=== PATIENT | male | born 1970 | race Caucasian/White ===

== ENCOUNTER 2020-05-04 18:10 | Emergency (ER) | payer BC, SELFPAY ==
--- NOTE | ~2020-05-04 | CT_ITS ---
EXAMINATION: CT abdomen pelvis w con INDICATION: Right flank pain and hematuria TECHNIQUE: Computed tomographic images of the abdomen and pelvis were obtained after the administrati on of 100 cc of Omnipaque 350 intravenous contrast. The dose-length product (DLP) was 1156.79 mGy-cm. Automated exposure control and iterative reconstruction technique were employed. COMPARISON: 09/08/2016 FINDINGS: Minimal dependent atelectasis is present in the lung bases. The heart size is normal. The l iver, spleen, pancreas, gallbladder, and adrenal glands are normal. There is a 5 mm stone of the righ t distal ureter which causes mild right hydroureteronephrosis. There is decreased perfusion of the ri ght kidney compared to the left. There is a 2 cm cyst of the right mid kidney. A 3 mm stone is prese nt in the lower pole of the left kidney. No pathologically enlarged abdominal or pelvic lymph nodes a re identified. There is no free intraperitoneal gas or evidence of bowel obstruction. The appendix is normal. There is mild lumbar spondylosis. There is mild rectal wall thickening. IMPRESSION: 1. 5 mm stone of the right distal ureter causing mild right hydroureteronephrosis. 2. Mild rectal wall thickening which could be due to incomplete distention however recommend correlat ion with colonoscopy history. Reviewed, dictated and finalized at location A. IMPRESSION: 1. 5 mm stone of the right distal ureter causing mild right hydroureteronephros is. 2. Mild rectal wall thickening which could be due to incomplete distention smith azra recommend correlation with colonoscopy history.
--- NOTE | ~2020-05-04 | XR_ITS ---
EXAMINATION: XR abdomen/kub 1V INDICATION: Right ureteral stone TECHNIQUE: Supine views of the abdomen were obtained on 2 radiographs. COMPARISON: CT from today FINDINGS: There is a 5 mm stone in the right distal ureter. There is moderate right hydroureteronephr osis and persistent right nephrogram. The bowel gas pattern is normal. Contrast from earlier CT also partially opacifies the left collecting system and bladder which appear normal. IMPRESSION: 1. 5 mm stone in the right distal ureter with moderate right hydroureteronephrosis and persistent rig ht nephrogram. Reviewed, dictated and finalized at location A. IMPRESSION: 1. 5 mm stone in the right distal ureter with moderate right hydroureteronephro sis and persistent right nephrogram.
[2020-05-04 18:16] VITALS: BP 144/88; PULSE 80; RESP 19; TEMP 37.1; O2SAT 98
[2020-05-04 18:33] LABS: Basophils Absolute Auto 0.1 K/mm3 (0.0-0.1); Basophils Percent Auto 0.5 % (0.2-1.2); Eosinophils Absolute Auto 0.1 K/mm3 (0-0.3); Eosinophils Percent Auto 0.4 % (0-4.4); Hematocrit 46.2 % (42.0-52.0); Hemoglobin 15.9 g/dL (14.0-18.0); Immature Granulocyte Absolute 0.04 K/mm3 (0.00-0.031); Immature Granulocyte Percent A 0.3 % (0-0.5); Lymphocytes Absolute Auto 0.92 K/mm3 (0.9-3.2); Lymphocytes Percent Auto 7.7 % (18.3-44.2); Mean Corpuscular HGB Conc 34.4 g/dl (32-36); Mean Corpuscular Hemoglobin 29.5 pg (26-34); Mean Corpuscular Volume 85.7 fl (80-100); Mean Platelet Volume 10.8 fl (7.4-10.4); Monocytes Absolute Auto 0.6 K/mm3 (0.1-0.6); Monocytes Percent Auto 5.3 % (2.6-8.5); Neutrophils Absolute Auto 10.3 K/mm3 (1.3-6.7); Neutrophils Percent Auto 85.8 % (45.5-73.1); Platelet Count Result 221 k/mm3 (150-375); Red Blood Count 5.39 M/mm3 (4.6-6.20); Red Cell Distribution Width 12.5 % (11.5-14.5)
[2020-05-04 18:48] LABS: Anion Gap 8 mmol/L (8-16); Blood Urea Nitrogen 17 mg/dL (9-20); Calcium 9.7 mg/dL (8.4-10.2); Carbon Dioxide 24 mmol/L (22-30); Chloride 105 mmol/L (98-107); Estimated CRCL calculation 76 ml/min; Estimated Glomerular Filt Rate 58; Glucose 108 mg/dL (75-110); Potassium 4.5 mmol/L (3.4-5.0); Sodium 137 mmol/L (137-145)
[2020-05-04 18:57] LABS: Add Urine Microscopic? YES; Appearance Urine Clear (Clear); Bacteria Urine Trace /hpf; Bilirubin Urine Negative (Negative); Blood Urine 1+ (Negative); Color Urine Yellow (Yellow); Glucose Urine UA Negative (Negative); Ketones Urine 1+ mg/dL (Negative); Leukocyte Esterase Ur Negative LEU/UL (Negative); Mucus Urine Rare /lpf; Nitrate Urine Negative (Negative); Protein Urine Negative (Negative); Specific Grav Ur 1.021 (1.001-1.035); WBC Urine 0-3 /hpf
--- NOTE | 2020-05-04 19:39 | ED.ABDPAIN ---
HPI - Abdominal Pain General Chief Complaint: Abdominal Pain Stated Complaint: R flank pain Time Seen by Provider: 05/04/20 19:39 Source: patient Mode of arrival: ambulatory Limitations: no limitations History of Present Illness HPI narrative: Patient is a 50-year-old male who presents for evaluation of right flank pain. Patient states that the pain began on Thursday, waking him from sleep with severe nature in the right flank. Associated with nausea and numerous episodes of vomiting. Patient states pain lasted approximately 3 hours on Thursday before resolving. Pain again returned today and is now radiating into the right testicle. He denies testicular swelling, redness. He denies hematuria, dysuria. No fever or chills. He reports recurrent nausea and vomiting. Patient states he had a CAT scan approximately 2 years ago which did show renal stones, he has never had any pain that he associated with the stones. Does not have a urologist. Related Data Allergies Allergy/AdvReac Type Severity Reaction Status Date / Time No Known Allergies Allergy Verified 09/02/19 20:27 Review of Systems Review of Systems: Narrative: CONSTITUTIONAL: Denies fever CARDIOVASCULAR: Denies chest pain RESPIRATORY: Denies cough or dyspnea. GASTROINTESTINAL: Denies abdominal pain : Reports radiation of pain in the right flank to the right testicle Thorax: Reports right flank pain SKIN: Denies rash, no vesicles or blistering MUSCULOSKELETAL: Reports right flank pain, no midline back pain NEUROLOGIC: Denies headache PMFSH Past Medical History Medical History No significant past medical history Social History Social History Smoking status: Never smoker Alcohol intake: current Gender identity (if verbalized by the patient): Male Exam Narrative: Exam Narrative: GENERAL: Awake, alert, conversant HEAD: Normocephalic, atraumatic. EYES: PERRLA and EOMI. ENT: Nares clear, no rhinorrhea or epistaxis. Mucous membranes moist. NECK: Supple. CHEST: No respiratory distress, breathing even and non labored HEART: Regular rate, sinus rhythm ABDOMEN:Non distended, non tender, mild tenderness to palpation of the right flank EXTREMITIES: Normal range of motion. No edema. SKIN: Warm, dry, no rash. NEURO:No focal deficits. Alert and oriented x3 Course Vital Signs Vital signs: Vital Signs Temperature 37.1 C 05/04/20 18:16 Pulse Rate 80 05/04/20 18:16 Respiratory Rate 19 05/04/20 18:16 Blood Pressure 144/88 H 05/04/20 18:16 Pulse Oximetry 98 05/04/20 18:16 Temperature 37.1 C 05/04/20 18:16 Pulse Rate 80 05/04/20 18:16 Respiratory Rate 19 05/04/20 18:16 Blood Pressure 144/88 H 05/04/20 18:16 Pulse Oximetry 98 05/04/20 18:16 MDM - Abdominal Pain MDM Narrative Medical decision making narrative: Patient presenting for evaluation of colicky right flank pain with radiation into the right testicle. Physical exam is reassuring. Pain is actually very mild at the time of assessment and only described as a slight soreness in the right flank. No concerning findings or symptoms were testicular torsion. Is very concerned for nephrolithiasis given patient's symptoms and history of renal stones. Laboratory results reassuring. No sign of urinary tract infection. Patient's pain is very much controlled and has had no vomiting. He is able to tolerate oral intake. CT scan does confirm a 5 mm right ureteral stone with mild hydronephrosis. Shared decision-making occurred with patient and family, he would like to be discharged home with oral pain medication and urology follow-up outpatient. I spoke with Dr. Hernandez visitor services information assistant with Urology was made aware of patient so that he can have close follow-up. Patient was advised to return should his symptoms recur or worsen despite trial of outpatient management. Differential Diagnosis
[2020-05-04] MEDS: MORPHINE SULFATE (*CRX) 4 MG/ML INJ IV PUSH (19:56)
[2020-05-04] MEDS: ONDANSETRON INJ 4 MG/2 ML VIAL IV PUSH (19:56)
[2020-05-04] MEDS: oxyCODONE HCL (*CRX) 5 MG TAB IR PO (21:26)
[2020-05-04 21:38] VITALS: BP 128/68; PULSE 67; RESP 17; O2SAT 98
== END 2020-05-04 21:39 | disposition home or self-care (01) ==
PROVIDERS: Emergency Medicine; Emergency Provider Emergency Medicine; PCP Family Medicine
DX: N13.2 Hydronephrosis with renal and ureteral calculous obstruction (principal); R93.3 Abnormal findings on diagnostic imaging of other parts of digestive tract
CPT/HCPCS: 36415; 74018; 74177; 80048; 81001; 85025; 96365; 96375; 99284; A9270; J0131; J2270; J2405; Q9967

== ENCOUNTER 2023-05-10 08:26 | Emergency (ER) | payer BC, SELFPAY ==
--- NOTE | ~2023-05-10 | XR_ITS ---
EXAMINATION: XR chest 2V DATE: 05/10/2023 09:09 INDICATION: Chest pain TECHNIQUE: PA and lateral views of the chest are obtained. COMPARISON: None available FINDINGS: The lungs are free of acute opacities. No pleural effusion or pneumothorax. The cardiomedia stinal silhouette is normal. There is mild thoracic spondylosis. Heterotopic ossification near the di stal right clavicle is consistent with prior injury. There appears to be mild separation of the right acromioclavicular joint. IMPRESSION: 1. No acute cardiopulmonary abnormality. Reviewed, dictated and finalized at location F.
--- NOTE | ~2023-05-10 | XR_ITS ---
EXAMINATION: XR shoulder LT min 2V INDICATION: Left shoulder pain TECHNIQUE: Four views of the left shoulder are submitted. COMPARISON: None FINDINGS: Normal alignment. No fracture. 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 Soft tissues are unremarkable. IMPRESSION: 1. No acute osseous abnormality. Reviewed, dictated and finalized at location F.
--- NOTE | ~2023-05-10 | CT_ITS ---
EXAMINATION: CT diagnostic chest w con DATE: 05/10/2023 11:14 INDICATION: Left upper chest pain TECHNIQUE: Transaxial computed tomographic images of the chest were obtained after the administration of 75 cc of Omnipaque 350 intravenous contrast. The dose-length product (DLP) was 692.76 mGy-cm. Ite rative reconstruction was used. COMPARISON: None FINDINGS: There is mild dependent atelectasis. The lungs are free of focal airspace opacities. No ple ural effusion or pneumothorax. No pathologically enlarged thoracic lymph nodes are identified. The he art size is normal. Mild bilateral gynecomastia is noted. There is calcified coronary artery atherosc lerosis. There is mild thoracic spondylosis. There is a 1.9 cm cyst of the right kidney. IMPRESSION: 1. No CT correlate for the patient's symptoms. Reviewed, dictated and finalized at location F.
[2023-05-10 08:39] VITALS: BP 133/100; PULSE 76; RESP 18; TEMP 36.8; O2SAT 98
[2023-05-10 08:47] VITALS: BP 141/93; PULSE 85; RESP 18; O2SAT 98
--- NOTE | 2023-05-10 08:55 | ECG_ITS ---
Measurements Intervals [place] Rate: 73 P: 29 PA: 155 QRS: 15 QRSD: 90 T: 32 QT: 361 QTc: 400 Interpretive Statements SINUS RHYTHM WITHIN NORMAL LIMITS NO PREVIOUS ECG AVAILABLE FOR COMPARISON Electronically Signed On 05-10-2023 9:33:06 CDT by Thee Cali M.D.
--- NOTE | 2023-05-10 09:39 | ED.GENADULT ---
HPI - General Adult General Chief complaint: Unspecified Stated complaint: left shoulder injury Time Seen by Provider: 05/10/23 08:43 Source: patient and RN notes reviewed Mode of arrival: ambulatory Limitations: no limitations History of Present Illness HPI narrative: This is a 53 year old male with who presents for evaluation of left collar bone and left shoulder pain. He states he woke up with pain on Thursday. He states his pain went away on but it returned on Thursday. He denies any injury and he does not think he has done any recent heavy lifting. He is a farr. His pain is worse with movement and tender to touch. He states his family has noticed swelling at the location of his pain. HE has been taking ibuprofen and old prescription of pain medication with out relief. He denies fever, chills, nausea, vomiting, shortness of breath. Related Data Allergies Allergy/AdvReac Type Severity Reaction Status Date / Time No Known Allergies Allergy Verified 05/10/23 08:45 Review of Systems Constitutional: Constitutional: Denies weakness Cardiovascular: Cardiovascular: Denies syncope, Denies rapid heart rate, Denies irregular heart rhythm, Denies leg edema and Denies dyspnea Respiratory: Respiratory: Denies chest congestion, Denies hemoptysis, Denies excessive phlegm production and Denies dyspnea Gastrointestinal: Gastrointestinal: Denies abdominal pain, Denies hematochezia, Denies diarrhea and Denies vomiting Genitourinary: Genitourinary: Denies hematuria, Denies dysuria, Denies penile discharge and Denies testicular pain Musculoskeletal: Musculoskeletal: Reports arthralgias, Denies joint swelling, Denies loss of height and Denies muscle weakness Neurologic: Denies syncope, Denies focal weakness and Denies weakness PMFSH Past Medical History Medical History (Updated 05/10/23 @ 12:32 by Breanne Blackwell MD) No significant past medical history Surgical History Surgical History No significant past surgical history Family History Family History Other Family history of arthritis Family history of malignant neoplasm Social History Social History Smoking status: Never smoker Alcohol intake: current Gender identity (if verbalized by the patient): Male Exam Narrative: GENERAL: Well-appearing, HEAD: Normocephalic, atraumatic EYES: EOMI, conjunctiva clear without discharge NOSE: Nares clear, no rhinorrhea or epistaxis THROAT:Mucous membranes moist, Oropharynx normal without erythema, exudate, peritonsillar swelling or fluctuance NECK: Supple, TTP supraclavicular, TTP along sternoclavicular joint RESPIRATORY: No respiratory distress, Airway patent, Respirations non-labored, Clear to auscultation without rales, rhonchi or wheeze HEART: Regular rate and rhythm. No murmur heard. Normal peripheral pulses. ABDOMEN: Soft, nontender, nondistended, normal active bowel sounds. No masses. No rebound or guarding, No organomegaly. EXTREMITIES: No edema, normal strength with full range of motion. SKIN: Warm, dry, normal color without rash NEURO: Alert and oriented x3. CN 2-12 grossly intact. No focal deficits. PSYCH: Normal mood and affect. Course Reevaluation(s) Reevaluation #1: I Discussed with patient no significant cause of his pain. CT did not shows abscess or infection. He has strong bilateral radial pulse. He will be treated with antiinflammatory NSAIDs and steroids. Follow up with PCP Date: 05/10/23 Time: 12:31 Vital Signs Vital signs: Vital Signs Temperature 98.3 F 05/10/23 08:39 Pulse Rate 76 05/10/23 08:39 Respiratory Rate 18 05/10/23 08:39 Blood Pressure 133/100 H 05/10/23 08:39 Pulse Oximetry 98 05/10/23 08:39 Oxygen Delivery Room Air 05/10/23 08:39 Temperature 98.3 F 05/10/23 08:39 Pulse Rate
[2023-05-10] MEDS: KETOROLAC 30 MG/ML VIAL (*BKC) IV PUSH (09:41)
[2023-05-10 09:42] VITALS: PULSE 71
[2023-05-10 09:44] LABS: Basophils Absolute Auto 0.1 K/mm3 (0.0-0.1); Basophils Percent Auto 0.5 % (0.2-1.2); Eosinophils Absolute Auto 0.1 K/mm3 (0-0.3); Eosinophils Percent Auto 1.4 % (0-4.4); Hematocrit 45.8 % (42.0-52.0); Hemoglobin 15.7 g/dL (14.0-18.0); Immature Granulocyte Absolute 0.03 K/mm3 (0.00-0.031); Immature Granulocyte Percent A 0.3 % (0-0.5); Lymphocytes Absolute Auto 1.47 K/mm3 (0.9-3.2); Lymphocytes Percent Auto 16.1 % (18.3-44.2); Mean Corpuscular HGB Conc 34.3 g/dl (32-36); Mean Corpuscular Hemoglobin 30.3 pg (26-34); Mean Corpuscular Volume 88.2 fl (80-100); Mean Platelet Volume 11.4 fl (7.4-10.4); Monocytes Percent Auto 10.5 % (2.6-8.5); Neutrophils Absolute Auto 6.5 K/mm3 (1.3-6.7); Neutrophils Percent Auto 71.2 % (45.5-73.1); Platelet Count Result 213 k/mm3 (150-375); Red Blood Count 5.19 M/mm3 (4.6-6.20); Red Cell Distribution Width 12.4 % (11.5-14.5); White Blood Count 9.1 K/mm3 (4.5-10.0)
[2023-05-10 09:57] LABS: INR 0.9; Prothrombin Time 12.9 Seconds (11.1-14.7)
[2023-05-10 09:58] LABS: Alanine Aminotransferase 33 U/L (6-50); Albumin Level 4.8 g/dL (3.5-5.1); Alkaline Phosphatase 78 U/L (38-126); Anion Gap 8 mmol/L (8-16); Aspartate Amino Transferase 27 U/L (17-59); Bilirubin,Total 2.2 mg/dL (0.2-1.3); Blood Urea Nitrogen 17 mg/dL (9-20); CRP 4.6 mg/dL (<1.0); Calcium 9.3 mg/dL (8.4-10.2); Carbon Dioxide 25 mmol/L (22-30); Chloride 105 mmol/L (98-107); Creatine Kinase 85 U/L (55-170); Estimated CRCL calculation 97 ml/min; Estimated Glomerular Filt Rate > 60; Glucose 112 mg/dL (65-110); Lipase 217 U/L (23-300); Partial Thromboplastin Time 31.9 SECONDS (22.3-36.8); Potassium 4.6 mmol/L (3.4-5.0); Sodium 138 mmol/L (137-145)
[2023-05-10] MEDS: HYDROcodone/acetaminophen (*CRX) 5-325 MG TABLET 1 TAB PO (10:42)
[2023-05-10 10:43] VITALS: BP 134/74; PULSE 80; RESP 15; O2SAT 98
[2023-05-10 11:16] VITALS: BP 139/101; PULSE 75; RESP 14; O2SAT 99
[2023-05-10] MEDS: HYDROmorphone HCL INJ (*CRX) 1 MG/ML SYR 0.5 MG IV PUSH (12:19)
[2023-05-10 12:24] VITALS: BP 124/88; PULSE 81; RESP 18; O2SAT 98
== END 2023-05-10 12:51 | disposition home or self-care (01) ==
PROVIDERS: Emergency Provider General Practice; PCP Family Medicine
DX: M25.512 Pain in left shoulder (principal)
CPT/HCPCS: 36415; 71046; 71260; 73030; 80053; 82550; 83690; 85025; 85610; 85730; 86140; 93005; 96374; 96375; 99284; A9270; J1170; J1885; Q9967

== ENCOUNTER 2023-05-26 10:01 | Outpatient (CLI) | payer BC, SELFPAY ==
[2023-05-26 10:54] LABS: Basophils Absolute Auto 0.1 K/mm3 (0.0-0.1); Basophils Percent Auto 1.2 % (0.2-1.2); Eosinophils Absolute Auto 0.2 K/mm3 (0-0.3); Eosinophils Percent Auto 3.1 % (0-4.4); Hematocrit 45.2 % (42.0-52.0); Hemoglobin 15.1 g/dL (14.0-18.0); Immature Granulocyte Absolute 0.02 K/mm3 (0.00-0.031); Immature Granulocyte Percent A 0.3 % (0-0.5); Lymphocytes Absolute Auto 1.35 K/mm3 (0.9-3.2); Lymphocytes Percent Auto 23.3 % (18.3-44.2); Mean Corpuscular HGB Conc 33.4 g/dl (32-36); Mean Corpuscular Hemoglobin 29.9 pg (26-34); Mean Corpuscular Volume 89.5 fl (80-100); Mean Platelet Volume 10.1 fl (7.4-10.4); Monocytes Absolute Auto 0.5 K/mm3 (0.1-0.6); Neutrophils Absolute Auto 3.7 K/mm3 (1.3-6.7); Neutrophils Percent Auto 63.1 % (45.5-73.1); Platelet Count Result 320 k/mm3 (150-375); Red Blood Count 5.05 M/mm3 (4.6-6.20); Red Cell Distribution Width 11.9 % (11.5-14.5); White Blood Count 5.8 K/mm3 (4.5-10.0)
[2023-05-26 11:05] LABS: Cholesterol 215 mg/dL (0-200); HDL Direct 24 mg/dL; Triglycerides 130 mg/dL (<150)
[2023-05-26 11:17] LABS: LDL Cholesterol Direct 148 mg/dL
[2023-05-26 11:37] LABS: Prostate Specific Antigen 0.7 ng/mL (< OR = 4.0)
== END 2023-05-26 10:02 | disposition home or self-care (01) ==
LOC: ANHLAB 10:03
PROVIDERS: PCP Family Medicine; Visit Provider Nurse Practitioner Family
DX: M86.9 Osteomyelitis, unspecified (principal); Z13.29 Encounter for screening for other suspected endocrine disorder; Z13.220 Encounter for screening for lipoid disorders; Z12.5 Encounter for screening for malignant neoplasm of prostate
CPT/HCPCS: 36415; 80061; 84153; 84443; 85025